=== PATIENT | male | born 1980 | race Caucasian/White ===

== ENCOUNTER 2021-12-21 13:36 | Emergency (ER) | payer BC, SELFPAY ==
--- NOTE | 2021-12-21 14:40 | XR_ITS ---
PROCEDURE INFORMATION: Exam: XR Right Ribs with PA Chest Exam date and time: 12/21/2021 2:40 PM Age: 41 years old Clinical indication: Injury or trauma; Other: Patient ran over by small subcompact tractor Wednesday. ; Chest wall and rib area; Blunt trauma (contusions or hematomas); Patient HX: Right lateral rib pain after tractor assault. Smoker. ; Additional info: Hit by tractor TECHNIQUE: Imaging protocol: XR Right ribs with PA chest. Views: 3 views COMPARISON: No relevant prior studies available. FINDINGS: Lungs: Unremarkable. No consolidation. Pleural spaces: Unremarkable. No pleural effusion. No pneumothorax. Heart/Mediastinum: Unremarkable. No cardiomegaly. Bones/joints: Unremarkable. IMPRESSION: No acute findings.
--- NOTE | 2021-12-21 14:40 | XR_ITS ---
PROCEDURE INFORMATION: Exam: XR Lumbosacral Spine Exam date and time: 12/21/2021 2:40 PM Age: 41 years old Clinical indication: Injury or trauma; Other: Patient ran over by a small subcompact tractor Wednesday. ; Blunt trauma (contusions or hematomas); Additional info: Hit by tractor TECHNIQUE: Imaging protocol: XR of the lumbosacral spine. Views: 4 or 5 views. COMPARISON: No relevant prior studies available. FINDINGS: Bones/joints: There is no evidence of acute fracture.There is no evidence of malalignment or dislocation. Mild intervertebral disc space narrowing at L5/S1. Soft tissues: Unremarkable. IMPRESSION: 1. There is no evidence of acute fracture.There is no evidence of malalignment or dislocation. 2. Mild intervertebral disc space narrowing at L5/S1.
--- NOTE | 2021-12-21 14:40 | XR_ITS ---
PROCEDURE INFORMATION: Exam: XR Sacrum and Coccyx, 2 or More Views Exam date and time: 12/21/2021 2:40 PM Age: 41 years old Clinical indication: Injury or trauma; Other: Ran over by small subcompact tractor Wednesday. ; Blunt trauma (contusions or hematomas); Additional info: Hit by tractor TECHNIQUE: Imaging protocol: XR of the sacrum and coccyx, 2 or more views. COMPARISON: CR XR LUMBAR SPINE MIN 4V 12/21/2021 2:49 PM FINDINGS: Bones/joints: There is no evidence of acute fracture.There is no evidence of malalignment or dislocation. Soft tissues: Normal. IMPRESSION: There is no evidence of acute fracture.There is no evidence of malalignment or dislocation.
[2021-12-21 15:20] VITALS: BP 135/75; PULSE 88; RESP 18; TEMP 37; O2SAT 100; BMI 27.1
--- NOTE | 2021-12-21 15:35 | HMH.EDUTC ---
[facility] [place] Clinical Impression: Rib pain on right side Crushing injury of left leg Qualifiers: Encounter type: initial encounter Qualified Code(s): S87.82XA - Crushing injury of left lower leg, initial encounter Crushing injury of right leg Qualifiers: Encounter type: initial encounter Qualified Code(s): S87.81XA - Crushing injury of right lower leg, initial encounter Low back pain Qualifiers: Chronicity: unspecified Back pain laterality: right Sciatica presence: with sciatica Sciatica laterality: sciatica of right side Qualified Code(s): M54.41 - Lumbago with sciatica, right side Disposition: Home, Self-Care Condition on Discharge: Good Instructions: DI for Crush Injury Additional Instructions: Take ibuprofen for pain. I sent in a prescription to your pharmacy. Follow up with Dr. Richter (orthopedics). Sometimes there can be fractures that don't show up well on the first set of x-rays. So, you should follow up if you continue to have symptoms. I put in a referral but you need to call his office and schedule an appointment. Go home and rest. It would be best if you rested for the next several days. No heavy lifting. No twisting. Take the oral medications as directed. The muscle relaxer (cyclobenzaprine--Flexeril) will make you drowsy, so don't drive or operate heavy machinery after taking it. Follow up with your regular doctor. GO TO THE ER FOR ANY WORSENING SYMPTOMS OR CONCERN, ESPECIALLY BOWEL OR BLADDER ISSUES, SADDLE AREA NUMBNESS, FEVER, ETC Prescriptions: Ibuprofen [Ibuprofen 800mg Tablet] 800 mg PO Q8HP PRN #30 tab PRN Reason: Moderate Pain Transmission Status: Received by [facility] #[id number] Cyclobenzaprine HCl [Cyclobenzaprine 10mg Tab] 10 mg PO BIDP PRN #20 tab PRN Reason: Muscle Spasm Transmission Status: Received by [facility] #[id number] Referrals: Provider,Referral, [Primary Care Provider] - Forms: Work/School Release Time of Disposition: 16:24 Medical Decision Making - Medical Records Medical records reviewed: No: I reviewed the patient's medical records. - Jarred Inquiry Pt receiving controlled substance: No Vital Signs: 12/21/21 15:20 12/21/21 16:26 Temperature 98.6 F 98.6 F Temperature Source Oral Pulse Rate 88 Pulse Rate [Left] 88 Respiratory Rate 18 18 Blood Pressure 135/75 Blood Pressure [Right Arm] 135/75 Blood Pressure Mean [Right Arm] 95 02 Sat by Pulse Oximetry 100 - Radiology Data #1 Image(s): L-Spine Image Reviewed: Yes I reviewed the patient's radiology image, Yes I have reviewed radiologist's interpretation Preliminary Findings: Normal/NAD, No Fracture Seen PROCEDURE INFORMATION: Exam: XR Lumbosacral Spine Exam date and time: 12/21/2021 2:40 PM Age: 41 years old Clinical indication: Injury or trauma; Other: Patient ran over by a small subcompact tractor Wednesday. ; Blunt trauma (contusions or hematomas); Additional info: Hit by tractor TECHNIQUE: Imaging protocol: XR of the lumbosacral spine. Views: 4 or 5 views. COMPARISON: No relevant prior studies available. FINDINGS: Bones/joints: There is no evidence of acute fracture.There is no evidence of malalignment or dislocation. Mild intervertebral disc space narrowing at L5/S1. Soft tissues: Unremarkable. IMPRESSION: 1. There is no evidence of acute fracture.There is no evidence of malalignment or dislocation. 2. Mild intervertebral disc space narrowing at L5/S1. #2 Image(s): Chest Image Reviewed: Yes I reviewed the patient's radiology image, Yes I have reviewed radiologist's interpretation Preliminary Findings: Normal/NAD, No Infiltrates Seen PROCEDURE INFORMATION: Exam: XR Right Ribs with PA Chest Exam date and time: 12/21/2021 2:40 PM Age: 41 years old Clinical indication: Injury or trauma; Other: Patient ran over by small subcompact tra
[2021-12-21 16:26] VITALS: BP 135/75; PULSE 88; RESP 18; TEMP 37
== END 2021-12-21 16:34 | disposition home or self-care (01) ==
PROVIDERS: Emergency Provider Nurse Practitioner Family
DX: S87.82XA Crushing injury of left lower leg, initial encounter (principal); S87.81XA Crushing injury of right lower leg, initial encounter; W30.89XA Contact with other specified agricultural machinery, initial encounter; Y92.79 Other farm location as the place of occurrence of the external cause
CPT/HCPCS: 71101; 72110; 72220; 99202; G0463

== ENCOUNTER 2022-01-11 11:34 | Emergency (ER) | payer BC, SELFPAY ==
[2022-01-11 11:36] VITALS: BP 166/105; PULSE 98; RESP 18; TEMP 37.2; O2SAT 99; BMI 25.8
--- NOTE | 2022-01-11 11:49 | HMH.EDGENADL ---
ED Disposition Clinical Impression: Abdominal wall contusion Qualifiers: Encounter type: initial encounter Qualified Code(s): S30.1XXA - Contusion of abdominal wall, initial encounter Disposition: Home, Self-Care Condition on Discharge: Good Additional Instructions: Follow-up with your primary care provider for continued care Referrals: Provider,Referral, [Primary Care Provider] - - Critical Care Critical Care Time: No Attestation: On 01/11/22, the high probability of a clinically significant, sudden or life threatening deterioration of the following system(s) required my full and direct attention, intervention and personal management. The time I documented below is in addition to time spent performing reported procedures but includes the following listed in this critical care notation. Medical Decision Making - Jarred Inquiry Pt receiving controlled substance: No Vital Signs: 01/11/22 11:36 01/11/22 12:08 01/11/22 12:30 Temperature 99.0 F Temperature Source Oral Pulse Rate 101 H 90 Pulse Rate [Left Radial] 98 H Respiratory Rate 18 Blood Pressure 146/97 H 152/94 H Blood Pressure [Right Arm] 166/105 H Blood Pressure Mean [Right Arm] 125 Blood Pressure Source [Right Arm] Automatic Cuff Blood Pressure Position [Right Arm] Sitting 02 Sat by Pulse Oximetry 99 99 99 Oxygen Delivery Method Room Air 01/11/22 13:00 Temperature Temperature Source Pulse Rate 79 Pulse Rate [Left Radial] Respiratory Rate Blood Pressure 133/83 Blood Pressure [Right Arm] Blood Pressure Mean [Right Arm] Blood Pressure Source [Right Arm] Blood Pressure Position [Right Arm] 02 Sat by Pulse Oximetry 98 Oxygen Delivery Method - Lab Data Lab Results 01/11/22 10:27: WBC 12.1 H, RBC 5.08, Hgb 17.3, Hct 53.2 H, MCV 104.6 H, MCH 34.1 H, MCHC 32.6, RDW 12.2, Plt Count 439 H, MPV 7.6, Neut % (Auto) 72.1, Lymph % (Auto) 15.9, Pitt % (Auto) 4.4, Eos % (Auto) 4.8, Baso % (Auto) 2.8 H, Neut # (Auto) 8.7 H, Lymph # (Auto) 1.9, Pitt # (Auto) 0.5, Eos # (Auto) 0.6 H, Baso # (Auto) 0.3 H 01/11/22 10:27: Sodium 135 L, Potassium 4.2, Chloride 100, Carbon Dioxide 24, Anion Gap 15.2 H, BUN 13, Creatinine 0.90, Estimated Creat Clear 127, Estimated GFR 94, Est GFR ( Amer) 114, Glucose 96, Calcium 9.0, Total Bilirubin 0.8, AST 32, ALT 22, Alkaline Phosphatase 92, Total Protein 8.5 H, Albumin 4.8, Globulin 3.7 H, Albumin/Globulin Ratio 1.3, Lipase 134 Result diagrams: 01/11/22 10:27 01/11/22 10:27 Orders (Tests/Meds): ED MEDICATIONS Discontinued Medications Generic Name Dose Route Start Last Admin Trade Name Freq PRN Reason Stop Dose Admin Iopamidol 75 ml 01/11/22 12:29 01/11/22 12:30 Iopamidol-370 (76%);100ml Bottle IV 01/11/22 12:30 75 ml ONCE ONE Administration Sodium Chloride 10 ml 01/11/22 12:29 01/11/22 12:30 Sodium Chloride 0.9% 10ml Syr (Rad Only) IV 01/11/22 12:30 10 ml ONCE ONE Administration - CT Data CT Scan: Abdomen, Pelvis Time Received: 13:[address] Reviewed: Yes: I have viewed the radiologist's interpretation Findings Narrative: PROCEDURE INFORMATION: Exam: CT Abdomen And Pelvis With Contrast Exam date and time: 01/11/2022 12:00 PM Age: 41 years old Clinical indication: Injury or trauma; Other: Ran over by tractor 1 mth ago; Blunt; Ruq; Injury date: 12/12/21; Additional info: Run over by tractor 1 mo ago, ruq pain- TECHNIQUE: Imaging protocol: Computed tomography of the abdomen and pelvis with contrast. Radiation optimization: All CT scans at this facility use at least one of these dose optimization techniques: automated exposure control; mA and/or kV adjustment per patient size (includes targeted exams where dose is matched to clinical indication); or iterative reconstruction. Contrast material: ISOVUE; Contrast volume: 75 ml; Contrast route: IV; COMPARISON: XR SACRUM COCCYX MIN 2V 12/21/2021 2:54 PM FINDINGS: Dot
--- NOTE | 2022-01-11 12:00 | CT_ITS ---
PROCEDURE INFORMATION: Exam: CT Abdomen And Pelvis With Contrast Exam date and time: 01/11/2022 12:00 PM Age: 41 years old Clinical indication: Injury or trauma; Other: Ran over by tractor 1 mth ago; Blunt; Ruq; Injury date: 12/12/21; Additional info: Run over by tractor 1 mo ago, ruq pain- TECHNIQUE: Imaging protocol: Computed tomography of the abdomen and pelvis with contrast. Radiation optimization: All CT scans at this facility use at least one of these dose optimization techniques: automated exposure control; mA and/or kV adjustment per patient size (includes targeted exams where dose is matched to clinical indication); or iterative reconstruction. Contrast material: ISOVUE; Contrast volume: 75 ml; Contrast route: IV; COMPARISON: XR SACRUM COCCYX MIN 2V 12/21/2021 2:54 PM FINDINGS: Liver: Normal. No mass. Gallbladder and bile ducts: Normal. No calcified stones. No ductal dilation. Pancreas: Normal. No ductal dilation. Spleen: Normal. No splenomegaly. Adrenal glands: Normal. No mass. Kidneys and ureters: Normal. No hydronephrosis. Stomach and bowel: Unremarkable. No obstruction. No mucosal thickening. Appendix: No evidence of appendicitis. Intraperitoneal space: Unremarkable. No free air. No significant fluid collection. Vasculature: Unremarkable. No abdominal aortic aneurysm. Lymph nodes: Unremarkable. No enlarged lymph nodes. Urinary bladder: Unremarkable as visualized. Reproductive: Unremarkable as visualized. Bones/joints: Small pelvic bone island. Mild spondylosis. Soft tissues: Unremarkable. IMPRESSION: No evidence of an acute intra-abdominal process.
[2022-01-11 12:08] VITALS: BP 146/97; PULSE 101; O2SAT 99
[2022-01-11 12:15] LABS: Basophils # 0.3 K/mm3 (0-0.2); Basophils % 2.8 % (0.1-2.0); Eosinophils # 0.6 K/mm3 (0.0-0.4); Eosinophils % 4.8 % (0.1-12.0); Hematocrit 53.2 % (42.0-52.0); Hemoglobin 17.3 g/dL (14.1-18.0); Lymphocytes # 1.9 K/mm3 (0.7-4.5); Lymphocytes % 15.9 % (10-50); Mean Corpuscular HGB Conc 32.6 g/dL (31.8-35.4); Mean Corpuscular Hemoglobin 34.1 pg (27.0-31.2); Mean Corpuscular Volume 104.6 fl (80-94); Mean Platelet Volume 7.6 fl (7.4-10.4); Monocytes # 0.5 K/mm3 (0.1-1.0); Monocytes % 4.4 % (1.7-9.3); Neutrophils # 8.7 K/mm3 (1.8-7.8); Neutrophils % 72.1 % (37.0-80.0); Platelet Count 439 K/mm3 (142-424); Red Blood Count 5.08 M/mm3 (4.60-6.20); Red Cell Distribution Width 12.2 % (11.5-17.5); White Blood Count 12.1 K/mm3 (4.8-10.8)
[2022-01-11 12:18] LABS: Chloride 100 mmol/L (98-107); Potassium 4.2 mmoL/L (3.5-5.1); Sodium 135 mmol/L (136-145)
[2022-01-11 12:21] LABS: Alanine Aminotransferase 22 U/L (12-78); Albumin Level 4.8 g/dl (3.5-5.0); Albumin/Globulin Ratio 1.3 (1.1-1.8); Alkaline Phosphatase 92 U/L (38-126); Anion Gap 15.2 mEq/L (5-15); Aspartate Amino Transferase 32 U/L (17-59); Bilirubin,Total 0.8 mg/dl (0.2-1.3); Blood Urea Nitrogen 13 mg/dl (9-20); Carbon Dioxide 24 mmol/L (22.0-30.0); Creatinine Clearance Estimated 127 mL/min (50-200); Estimated Glomerular Filt Rate 94 ml/min (>60); GFR (African American) 114 ML/MIN (>60); Globulin 3.7 g/dL (1.3-3.2); Glucose 96 mg/dl (74-100); Lipase 134 U/L (23-300); Total Protein,Serum 8.5 g/dl (6.3-8.2)
[2022-01-11 12:30] VITALS: BP 152/94; PULSE 90; O2SAT 99
[2022-01-11 13:00] VITALS: BP 133/83; PULSE 79; O2SAT 98
[2022-01-11 13:46] VITALS: BP 133/88; PULSE 79; RESP 20; TEMP 37.2; O2SAT 99
== END 2022-01-11 13:50 | disposition home or self-care (01) ==
PROVIDERS: Emergency Provider Emergency Medicine
DX: S30.1XXA Contusion of abdominal wall, initial encounter (principal); Z79.1 Long term (current) use of non-steroidal anti-inflammatories (NSAID); Z79.899 Other long term (current) drug therapy; Z91.041 Radiographic dye allergy status; Z91.013 Allergy to seafood
CPT/HCPCS: 74177; 80053; 83690; 85025; 99284; Q9967

== ENCOUNTER 2024-08-07 19:45 | Emergency (ER) | payer BC, SELFPAY ==
[2024-08-07 19:43] VITALS: BP 132/94; PULSE 89; RESP 22; TEMP 36.7; O2SAT 99
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
[2024-08-07] MEDS: diphenhydrAMINE 50MG/ML VIAL 50 MG IV (19:56)
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
--- NOTE | 2024-08-07 20:01 | HMH.ITSTN ---
GFR completion/results were overrode for the use of contrast media by the Physician on a risk vs. benefit situation with this patient. Patient was pre-medicated for contrast allergy. Contrast ok to give per Dr. Fuentes & patient.
[2024-08-07 20:02] LABS: Basophils # 0.2 K/mm3 (0-0.2); Basophils % 1.1 % (0.1-2.0); Eosinophils # 0.2 K/mm3 (0.0-0.4); Eosinophils % 1.2 % (0.1-12.0); Hematocrit 46.1 % (42.0-52.0); Hemoglobin 15.4 g/dL (14.1-18.0); Lymphocytes # 4.4 K/mm3 (0.7-4.5); Lymphocytes % 25.6 % (10-50); Mean Corpuscular HGB Conc 33.5 g/dL (31.8-35.4); Mean Corpuscular Hemoglobin 34.7 pg (27.0-31.2); Mean Corpuscular Volume 103.6 fl (80-94); Mean Platelet Volume 8.3 fl (7.4-10.4); Monocytes # 1.1 K/mm3 (0.1-1.0); Monocytes % 6.3 % (1.7-9.3); Neutrophils # 11.5 K/mm3 (1.8-7.8); Neutrophils % 65.9 % (37.0-80.0); Platelet Count 460 K/mm3 (142-424); Red Blood Count 4.45 M/mm3 (4.60-6.20); Red Cell Distribution Width 13.7 % (11.5-17.5); White Blood Count 17.4 K/mm3 (4.8-10.8)
[2024-08-07 20:04] LABS: Albumin Level 3.8 g/dl (3.5-5.0); Chloride 104 mmol/L (98-107); Sodium 135 mmol/L (136-145)
[2024-08-07 20:05] LABS: MANUAL DIFFERENTIAL MANUAL DIFFERENTIAL (MANUAL DIFF)
[2024-08-07 20:06] LABS: Alanine Aminotransferase 117 U/L (12-78); Aspartate Amino Transferase 299 U/L (17-59); Blood Urea Nitrogen 14 mg/dl (9-20); Carbon Dioxide 19 mmol/L (22.0-30.0); Estimated Glomerular Filt Rate 73 ml/min (>60); GFR (African American) 89 ML/MIN (>60)
[2024-08-07 20:07] LABS: Albumin/Globulin Ratio 1.4 (1.1-1.8); Alkaline Phosphatase 56 U/L (38-126); Bilirubin,Total 0.4 mg/dl (0.2-1.3); Calcium 9.5 mg/dl (8.4-10.2); Globulin 2.8 g/dL (1.3-3.2); Glucose 108 mg/dl (74-100); Lipase 227 U/L (23-300); Total Protein,Serum 6.6 g/dl (6.3-8.2)
[2024-08-07 20:09] LABS: VBG Base Excess -5.5 mmol/L (-2.4-2.3); VBG HCO3 18.3 mmol/L (23-30); VBG Oxygen Saturation 99.3 % (50-70); VBG PCO2 26.5 mmol/L (35-51); VBG PH 7.46 mmol/L (7.31-7.41); VBG PO2 146.1 mmol/L (28-40); VBG Total CO2 19.2 mmol/L (23-27)
[2024-08-07 20:11] LABS: Activated Partial Thrombo Time 23.6 seconds (22.8-30.6); INR 0.91 (0.9-1.1); Prothrombin Time 10.3 seconds (10.1-12.5)
[2024-08-07 20:12] LABS: Lactate Venous 4.4 mmol/L (0.4-2.0)
[2024-08-07 20:19] LABS: Troponin I 0.02 ng/ml (0.00-0.034)
[2024-08-07] MEDS: METHYLPREDNISOLONE SOD SUCC 125MG VIAL 125 MG IV (20:23)
[2024-08-07] MEDS: 0.9 % SODIUM CHLORIDE 1000ML 1,000 ML 999 ML IV (20:23)
[2024-08-07 20:38] LABS: Ethyl Alcohol 124 mg/dl (0-10)
[2024-08-07] MEDS: ONDANSETRON 4MG/2ML VIAL 4 MG IV ×2 (20:50→21:43)
[2024-08-07] MEDS: IOPAMIDOL-370 (76%);100ML BOTTLE 80 ML IV (20:55)
[2024-08-07 21:34] LABS: Giant Platelets 1+; Lymphocytes % 25 % (10-50); Monocytes % 2 % (2-9); Neutrophils % 73 % (42-76); Platelet Estimate Normal; RBC Morphology Normal; Total Cells Counted 100
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
[2024-08-07 21:39] VITALS: BMI 25.8
[2024-08-07] MEDS: HYDROMORPHONE 2MG/ML SYRINGE 0.5 MG IV (21:43)
--- NOTE | 2024-08-07 21:54 | PC.NURSE ---
Pt placed in a C collar by Pamela Tavares and CHRISTINA Leahy.
[2024-08-07] MEDS: HYDROMORPHONE 2MG/ML SYRINGE 1 MG IV (22:21)
[2024-08-07 22:30] VITALS: BP 125/81; PULSE 102; RESP 14; TEMP 36.7; O2SAT 96
[2024-08-08 00:11] LABS: Reflex Lactic Add Lactic Reflex
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
[2024-08-08] MEDS: 0.9 % SODIUM CHLORIDE 50 ML VIAL IV (07:40)
== END 2024-08-07 22:32 | disposition short-term general hospital (02) ==
PROVIDERS: Emergency Provider Emergency Medicine
DX: V27.41XA Electric (assisted) bicycle driver injured in collision with fixed or stationary object in traffic accident, initial encounter; Y90.6 Blood alcohol level of 120-199 mg/100 ml; S36.039A Unspecified laceration of spleen, initial encounter; S37.062A Major laceration of left kidney, initial encounter; S25.00XA Unspecified injury of thoracic aorta, initial encounter; S35.512A Injury of left iliac artery, initial encounter; S35.511A Injury of right iliac artery, initial encounter; T07.XXXA Unspecified multiple injuries, initial encounter; F10.129 Alcohol abuse with intoxication, unspecified; R74.02 Elevation of levels of lactic acid dehydrogenase [LDH]; R45.1 Restlessness and agitation
CPT/HCPCS: 70450; 70496; 70498; 71045; 71275; 72125; 72128; 72131; 72170; 72192; 74174; 80053; 80320; 82803; 83690; 84484; 85007; 85025; 85027; 85610; 85730; 96361; 96374; 96375; 96376; 99291; G0480; J1170; J1200; J2405; J2919; J7030; Q9967

== ENCOUNTER 2025-07-01 10:57 | Emergency (ER) | payer BC, SELFPAY ==
[2025-07-01] VITALS (8 sets, daily range): BP systolic 122–141; BP diastolic 76–93; PULSE 68–89; RESP 17–20; TEMP 36.7–37.1; O2SAT 96–99; BMI 25.8
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
[2025-07-01] MEDS: ACETAMINOPHEN 500MG TAB 1000 MG PO (11:47)
[2025-07-01] MEDS: DEXAMETHASONE 4MG TABLET 12 MG PO (11:50)
[2025-07-01] MEDS: METHOCARBAMOL 500MG TABLET 1000 MG PO (11:51)
[2025-07-01] MEDS: LIDOCAINE 5% TRANSDERMAL PATCH 1 EACH TD (11:51)
[2025-07-01] MEDS: KETOROLAC 30MG/ML VIAL 15 MG IM (12:01)
--- NOTE | 2025-07-01 12:32 | PC.NURSE ---
Called [facility] for outpatient spine consult. Dx: Degenerative disc disorder. [facility] will call back
== END 2025-07-01 13:13 | disposition home or self-care (01) ==
PROVIDERS: Emergency Provider Student in an Organized Health Care Education/Training Program
DX: M54.16 Radiculopathy, lumbar region (principal)
CPT/HCPCS: 72131; 96372; 99284; J1885; J8540